=== PATIENT | male | born 2000 | race Caucasian/White ===

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

== ENCOUNTER 2018-01-16 07:14 | Emergency (ER) | payer OTHER ==
[~2018-01-16] VITALS: Ht 182.9 cm; Wt 80.0 kg
[2018-01-16 08:20] VITALS: BP 152/80
== END 2018-01-16 08:19 | disposition home or self-care (01) | DRG 696 ==
LOC: ED 07:14
DX: R36.9 Urethral discharge, unspecified (principal)

== ENCOUNTER 2018-03-02 09:23 | Emergency (ER) | payer OTHER ==
[~2018-03-02] VITALS: Ht 182.9 cm; Wt 90.0 kg
[2018-03-02] MEDS ORDERED: ZITHROMAX250 MG PO (10:17)
[2018-03-02 10:37] VITALS: BP 165/86
== END 2018-03-02 10:45 | disposition home or self-care (01) ==
LOC: ED 09:23
DX: A64 Unspecified sexually transmitted disease (principal); I10 Essential (primary) hypertension; F17.210 Nicotine dependence, cigarettes, uncomplicated; R36.9 Urethral discharge, unspecified; R30.0 Dysuria

== ENCOUNTER 2018-07-21 16:47 | Emergency (ER) | payer OTHER ==
[~2018-07-21] VITALS: Ht 182.9 cm; Wt 80.9 kg
[~2018-07-21 16:47] MED LIST changes: +ZITHROMAX250 MG PO
[2018-07-21] MEDS ORDERED: CLINDAMYCIN300 M1 PO (17:11)
[2018-07-21] MEDS ORDERED: CIPROFLOXACN500 MG PO (17:11)
[2018-07-21 18:02] VITALS: BP 169/100
== END 2018-07-21 18:17 | disposition home or self-care (01) ==
LOC: ED 16:47
DX: S91.331A Puncture wound without foreign body, right foot, initial encounter (principal); W45.0XXA Nail entering through skin, initial encounter; Y93.01 Activity, walking, marching and hiking; Y92.007 Garden or yard of unspecified non-institutional (private) residence as the place of occurrence of the external cause

== ENCOUNTER 2018-09-19 11:43 | Emergency (ER) | payer MEDICAID ==
[~2018-09-19] VITALS: Ht 182.9 cm; Wt 90.9 kg
[~2018-09-19 11:43] MED LIST changes: +CIPROFLOXACN500 MG PO; +CLINDAMYCIN300 M1 PO
[2018-09-19 12:44] VITALS: BP 164/92
== END 2018-09-19 12:53 | disposition home or self-care (01) ==
LOC: ED 11:43
DX: S80.12XA Contusion of left lower leg, initial encounter (principal); I10 Essential (primary) hypertension; F31.9 Bipolar disorder, unspecified; F20.9 Schizophrenia, unspecified; F17.210 Nicotine dependence, cigarettes, uncomplicated; V13.4XXA Pedal cycle driver injured in collision with car, pick-up truck or van in traffic accident, initial encounter; Y92.410 Unspecified street and highway as the place of occurrence of the external cause

== ENCOUNTER 2019-04-18 02:36 | Emergency (ER) | payer SELFPAY ==
[~2019-04-18] VITALS: Ht 182.9 cm; Wt 90.0 kg
[2019-04-18 03:46] LABS: HEMATOCRIT 42.6 % (39.0-50.0); HEMOGLOBIN 14.9 g/dl (14.0-18.0); IMMATURE GRANULOCYTES 0.6 % (0.0-5.0); MEAN CELL VOLUME 84.9 fL CALC (80.0-100.0); MEAN CORPUSCULAR HGB 29.7 pG CALC (26.0-32.0); NEUT# 14.42 thou/uL (1.82-7.42); RED BLOOD COUNT 5.02 mill/uL (4.70-6.10); RED CELL DISTRI WIDTH 12.3 % (11.5-15.5)
[2019-04-18 04:01] LABS: ALBUMIN 4.2 g/dL (3.2-5.0); ALKALINE PHOSPHATASE 110 u/l (38-126); AMYLASE 40 u/l (30-110); BUN 14 mg/dL (9-20); BUN/CREATININE RATIO 20 (12-20 (CALC)); CARBON DIOXIDE 24 mmol/l (22-30); CHLORIDE 100 mmol/l (95-108); CREATININE 0.7 mg/dL (0.7-1.3); GFR > 60 ML/MIN (>=60 (CALC)); GFR FOR AFR.AMER. > 60 ML/MIN (>=60 (CALC)); LIPASE 17 u/l (23-300); POTASSIUM 4.5 mmol/l (3.5-5.1); SGOT/AST 17 u/l (17-59); TOTAL PROTEIN 7.8 g/dL (6.3-8.2)
[2019-04-18 04:03] LABS: ANION GAP 18 (6-22 (CALC)); BILIRUBIN, TOTAL 0.9 mg/dL (0.0-1.4); SODIUM 137 mmol/l (137-146)
[2019-04-18 06:51] LABS: URINE BILIRUBIN - DIPSTICK NEGATIVE (NEGATIVE); URINE BLOOD DIPSTICK NEGATIVE (NEGATIVE); URINE COLOR YELLOW; URINE GLUCOSE - DIPSTICK NEGATIVE (NEGATIVE); URINE KETONE 15 mg/dL (NEGATIVE); URINE LEUK ESTERASE NEGATIVE (NEGATIVE); URINE NITRITE - DIPSTICK NEGATIVE (Negative); URINE PH 6.5 (4.5-8.0); URINE PROTEIN - DIPSTICK NEGATIVE (NEG-TRACE); URINE SPECIFIC GRAVITY <=1.005
[2019-04-18] MEDS ORDERED: NAPROXEN500 MG PO ×2 (06:54→06:55)
[2019-04-18] MEDS ORDERED: BACTRIM DS1 TAB PO ×2 (06:54→06:55)
[2019-04-18 07:10] VITALS: BP 142/67
== END 2019-04-18 07:10 | disposition home or self-care (01) | DRG 153 ==
LOC: ED 02:36
PROVIDERS: Emergency Medicine
DX: J06.9 Acute upper respiratory infection, unspecified (principal); F17.210 Nicotine dependence, cigarettes, uncomplicated